=== PATIENT | female | born 1930 | race Caucasian/White ===

== ENCOUNTER 2016-10-23 19:38 | Inpatient (IN) | payer MEDICARE, OTHER ==
[~2016-10-23] VITALS: Ht 172.7 cm; Wt 52.6 kg
[~2016-10-23 19:38] MED LIST: ASPI325T82 PO
[2016-10-23] MEDS ORDERED: NORMAL SALINE IV SCH (20:03)
--- NOTE | 2016-10-23 20:31 | PHYS DOC ---
Past Medical History Past Medical History: Arthritis Additional Past Medical Histor: "difficulty swallowing" Past Surgical History: Other Additional Past Surgical Histo: bilat knees, esophageal dilatation, cataracts, back Alcohol Use: Occasionally Additional Information: occasional wine glass Drug Use: None Adult General Chief Complaint Chief Complaint: MECHANICAL FALL HPI HPI Patient is a 86 year old female who presents with generalized weakness. Patient was brought to the emergency department by EMS after patient suffered a fall earlier today. Patient normally ambulates with use of walker. Patient was attempting to go to the restroom when she actually fell. Patient did not experience loss of consciousness as a result of her fall and did not hit her head per family. The patient is complaining of left knee and left ankle pain. Patient has noted history of severe arthritis which has caused very limited mobility for the patient. The patient was unable to bear weight under her own power. Family notes that even with assistance they were unable to help the patient bear weight. Patient family do not report any fevers or other symptoms prior to onset of the fall. EMS noted that the patient had an elevated blood sugar of 374. Patient does not have any known history of diabetes. Review of Systems Review of Systems Constitutional: Generalized weakness, Denies fever or chills [] Eyes: Denies change in visual acuity, redness, or eye pain [] HENT: Denies nasal congestion or sore throat [] Respiratory: Shortness of breath [] Cardiovascular: Denies chest pain [] GI: Denies abdominal pain, nausea, vomiting, bloody stools or diarrhea [] : Denies dysuria or hematuria [] Musculoskeletal: Left knee and left ankle pain [] Integument: Denies rash or skin lesions [] Neurologic: Denies headache, focal weakness or sensory changes [] Current Medications Current Medications Current Medications Medications (Trade) Dose Ordered Sig/Freddie Start Time Stop Time Status Last Admin Dose Admin Fentanyl Citrate (Fentanyl 2ml Vial) 100 mcg STK-MED ONCE 10/23/16 20:46 10/23/16 20:47 DC Ondansetron HCl (Zofran) 4 mg STK-MED ONCE 10/23/16 20:46 10/23/16 20:47 DC Sodium Chloride 1,440 ml @ 720 mls/hr Q2H 10/23/16 20:03 10/23/16 20:35 720 MLS/HR Allergies Allergies Allergies Coded Allergies Type Severity Reaction Last Updated Verified No Known Drug Allergies 10/13/13 No Physical Exam Physical Exam Constitutional: Alert, afebrile, hypotensive, appears ill. [] HENT: Normocephalic, atraumatic, bilateral external ears normal, pale mucous membranes, dry oral mucosa, no oral exudates, nose normal. [] Eyes: PERRLA, EOMI, conjunctiva normal, no discharge. [] Neck: Normal range of motion, no tenderness, supple, no stridor. [] Cardiovascular: Tachycardia, regular rhythm, no murmur [] Lungs & Thorax: Bilateral breath sounds clear to auscultation [] Abdomen: Bowel sounds normal, soft, no tenderness, no masses, no pulsatile masses. Rectal: Nontender on exam, dark brown stool, no gross blood visible [] Skin: Warm, dry, pale. [] Back: No tenderness, no CVA tenderness. [] Extremities: Chronic deformities of the knee and ankle joints, nontender to palpation along left knee and left ankle, pain with range of motion present. [] Neurologic: Alert and oriented X 3, normal motor function, normal sensory function, no focal deficits noted. [] Current Patient Data Vital Signs Vital Signs Date Time Temp Pulse Resp B/P (MAP) Pulse Ox O2 Delivery O2 Flow Rate FiO2 10/23/16 20:51 120 16 88/45 (59) 100 Room Air 10/23/16 19:38 97.4 97.4 Lab Values Laboratory Tests Test 10/23/16 20:30 10/23/16 20:35 10/23/16 21:00 10/23/16 21:27 Lactic Acid Level 9.4 mmol/L (0.4-2.0) *H White Blood Count 9.4 x10^3/uL (4.0-11.0) Red Blood Count 1.79 x10^6/uL (3.50-5.40) L Hemoglobin 7.0 g/dL (12.0-15.5) *L Hematocrit 21.2 % (36.0-47.0) L Mean Corpuscular Volume 119 fL (79-100) H Mean Corpuscular Hemoglobin 39 pg (25-35) H Mean Corpuscular Hemoglobin Concent 33 g/dL (31-37) Red Cell Distribution Width 16.0 % (11.5-14.5) H Platelet Count 136 x10^3/uL (140-400) L Neutrophils (%) (Auto) 91 % (31-73) H Lymphocytes (%) (Auto) 6 % (24-48) L Monocytes (%) (Auto) 3 % (0-9) Eosinophils (%) (Auto) 0 % (0-3) Basophils (%) (Auto) 0 % (0-3) Neutrophils # (Auto) 8.6 x10^3uL (1.8-7.7) H Lymphocytes # (Auto) 0.5 x10^3/uL (1.0-4.8) L Monocytes # (Auto) 0.3 x10^3/uL (0.0-1.1) Eosinophils # (Auto) 0.0 x10^3/uL (0.0-0.7) Basophils # (Auto) 0.0 x10^3/uL (0.0-0.2) Segmented Neutrophils % 77 % (35-66) H Band Neutrophils % 12 % (0-9) H Lymphocytes % 6 % (24-48) L Monocytes % 5 % (0-10) Nucleated Red Blood Cells 1 Platelet Estimate Adequate (ADEQUATE) Basophilic Stippling Present Macrocytosis Mod Ovalocytes Occ Prothrombin Time 15.2 SEC (11.7-14.0) H Prothrombin Time INR 1.3 (0.8-1.1) H PTT 25 SEC (24-38) Sodium Level 143 mmol/L (136-145) Potassium Level 5.3 mmol/L (3.5-5.1) H Chloride Level 104 mmol/L (98-107) Carbon Dioxide Level 20 mmol/L (21-32) L Anion Gap 19 (6-14) H Blood Urea Nitrogen 124 mg/dL (7-20) H Creatinine 1.9 mg/dL (0.6-1.0) H Estimated GFR (Cockcroft-Gault) 25.0 BUN/Creatinine Ratio 65 (6-20) H Glucose Level 218 mg/dL (70-99) H Calcium Level 9.4 mg/dL (8.5-10.1) Total Bilirubin 0.4 mg/dL (0.2-1.0) Aspartate Amino Transferase (AST) 18 U/L (15-37) Alanine Aminotransferase (ALT) 17 U/L (14-59) Alkaline Phosphatase 45 U/L (46-116) L Creatine Kinase 55 U/L (26-192) Creatine Kinase MB (Mass) 0.7 ng/mL (0.0-3.6) Creatine Kinase MB Relative Index % (0-4) Total Protein 6.5 g/dL (6.4-8.2) Albumin 3.3 g/dL (3.4-5.0) L Albumin/Globulin Ratio 1.0 (1.0-1.7) Ethyl Alcohol Level < 10 mg/dL (0-10) Stool Occult Blood Negative (NEG) Urine Collection Type Unknown Urine Color Yellow Urine Clarity Clear Urine pH 5.5 Urine Specific [place] 1.015 Urine Protein Negative mg/dL (NEG-TRACE) Urine Glucose (UA) Negative mg/dL (NEG) Urine Ketones (Stick) Negative mg/dL (NEG) Urine Blood Negative (NEG) Urine Nitrite Negative (NEG) Urine Bilirubin Negative (NEG) Urine Urobilinogen Dipstick 0.2 mg/dL (0.2 mg/dL) Urine Leukocyte Esterase Negative (NEG) Urine RBC Occ /HPF (0-2) Urine WBC Occ /HPF (0-4) Urine Squamous Epithelial Cells Mod /LPF Urine Bacteria 0 /HPF (0-FEW) Urine Mucus Slight /LPF Urine Opiates Screen Neg (NEG) Urine Methadone Screen Neg (NEG) Urine Barbiturates Neg (NEG) Urine Phencyclidine Screen Neg (NEG) Urine Amphetamine/Methamphetamine Neg (NEG) Urine Benzodiazepines Screen Neg (NEG) Urine Cocaine Screen Neg (NEG) Urine Cannabinoids Screen Neg (NEG) Urine Ethyl Alcohol Neg (NEG) Laboratory Tests 10/23/16 20:35 Laboratory Tests 10/23/16 20:35 EKG EKG Interpreted by me: Heart rate 128, sinus tachycardia, normal intervals, normal axis, no acute ST/T-wave abnormalities present [] Radiology/Procedures Radiology/Procedures One view AP chest x-ray interpreted by me: No infiltrates, no effusions, normal cardiac silhouette 3 view left ankle x-ray interpreted by me: Severe degenerative changes, no fractures, normal alignment 3 view left knee x-ray interpreted by me: Possible periprosthetic fracture versus chronic degenerative changes of the distal left femur, normal alignment, moderate soft tissue swelling overlying left knee [] Course & Med Decision Making Course & Med Decision Making Pertinent Labs and Imaging studies reviewed. (See chart for details) The patient was started on 2 L of IV fluids in the emergency department due to tachycardia and hypotension. The patient's blood work was significant for multiple metabolic abnormalities including lactic acidosis, acute renal failure with hyperuricemia, and evidence of macrocytic anemia. The patient does not appear to have evidence of acute hemorrhage. Patient is responding with IV fluid challenge. Patient does meet SIRS criteria at this time with no obvious source of infection identified. I spoke with Dr. Myers who agreed to accept the patient for admission to ICU for further treatment. We also agreed to start patient on empiric antibiotic therapy with vancomycin and Zosyn until results of blood cultures were received. Spoke with family regarding plan of care and they are in agreement at this time. Dragon Disclaimer Dragon Disclaimer This electronic medical record was generated, in whole or in part, using a voice recognition dictation system. Departure Departure Impression: Primary Impression: Hemodynamic instability Additional Impressions: Acute renal failure SIRS (systemic inflammatory response syndrome) Macrocytic anemia Metabolic acidosis Bandemia Hyperglycemia Mild protein malnutrition Disposition: 09 ADMITTED INPATIENT Admitting Physician: Rodolfo Myers Condition: CRITICAL Referrals: NO PCP (PCP) Problem Qualifiers Additional Impressions: Acute renal failure Acute renal failure type: unspecified Qualified Codes: N17.9 - Acute kidney failure, unspecified PRASANNA BLANK MD October 23, 2016 20:31
[2016-10-23] MEDS ORDERED: ONDANSETRON PF 4 MG/2 ML VIAL. IV ONE (20:45)
[2016-10-23] MEDS ORDERED: ONDANSETRON PF 4 MG/2 ML VIAL. ONE (20:46)
[2016-10-23] MEDS ORDERED: fentaNYL PF VIAL 100 MCG/2 ML VIAL ONE (20:46)
[2016-10-23 20:47] LABS: BASO % 0 % (0-3); EOS % 0 % (0-3); HEMATOCRIT 21.2 % (36.0-47.0); LYMPH # 0.5 x10^3/uL (1.0-4.8); LYMPH % 6 % (24-48); MEAN CORPUSCULAR HEMOGLOBIN 39 pg (25-35); MEAN CORPUSCULAR HGB CONC 33 g/dL (31-37); MEAN CORPUSCULAR VOLUME 119 fL (79-100); MONO % 3 % (0-9); NEUT % 91 % (31-73); PLATELET COUNT 136 x10^3/uL (140-400); RED BLOOD COUNT 1.79 x10^6/uL (3.50-5.40); WHITE BLOOD COUNT 9.4 x10^3/uL (4.0-11.0)
[2016-10-23] MEDS: fentaNYL PF VIAL 100 MCG/2 ML VIAL IV PRN ×2 (20:50→22:07)
[2016-10-23 20:55] LABS: INR 1.3 (0.8-1.1); PROTHROMBIN TIME PATIENT 15.2 SEC (11.7-14.0)
[2016-10-23 20:57] LABS: CALCIUM 9.4 mg/dL (8.5-10.1); CREATININE 1.9 mg/dL (0.6-1.0); POTASSIUM 5.3 mmol/L (3.5-5.1)
[2016-10-23 21:04] LABS: ALBUMIN 3.3 g/dL (3.4-5.0); TOTAL BILIRUBIN 0.4 mg/dL (0.2-1.0); TOTAL PROTEIN 6.5 g/dL (6.4-8.2)
[2016-10-23 21:12] LABS: CKMB MASS 0.7 ng/mL (0.0-3.6); CREATINE KINASE 55 U/L (26-192)
[2016-10-23 21:28] LABS: NUCLEATED RBC 1; PLT ESTIMATE ADEQUATE (ADEQUATE)
[2016-10-23 21:31] LABS: OVALOCYTES OCC
[2016-10-23 21:35] LABS: BILIRUBIN,URINE NEGATIVE (NEG); GLUCOSE,URINE NEGATIVE (NEG); NITRITE,URINE NEGATIVE (NEG); PH,URINE 5.5; PROTEIN,URINE NEGATIVE (NEG-TRACE); UROBILINOGEN,URINE 0.2 mg/dL (0.2 mg/dL)
[2016-10-23 21:36] LABS: NEG OBC FOB NEG; POS OBC FOB POS
[2016-10-23 21:40] LABS: BACTERIA,URINE 0 /HPF (0-FEW); RBC,URINE OCC /HPF (0-2); SQUAMOUS EPITHELIAL CELL,UR MOD /LPF; WBC,URINE OCC /HPF (0-4)
[2016-10-23] MEDS ORDERED: IV NORMAL SALINE 1000ML BAG 1,000 ML IV ONE (22:15)
[2016-10-23 22:20] LABS: BARBITURATES NEG (NEG); BENZODIAZEPINES NEG (NEG); CANNABINOIDS NEG (NEG); COCAINE NEG (NEG); METHADONE NEG (NEG); OPIATES NEG (NEG); PHENCYCLIDINE NEG (NEG)
[2016-10-23] MEDS ORDERED: PIP/TAZO PER PHARMACY MC PRN (23:00)
[2016-10-23 23:30] VITALS: BP 48/23
[2016-10-23] MEDS ORDERED: VANCOMYCIN 1.25 GM in IV NORMAL SALINE 250ML 250 ML IV ONE (23:30)
[2016-10-23] MEDS: PIPERACILLIN/TAZOBACTAM 2.25 GM in IV NORMAL SALINE 50ML 50 ML IV SCH (23:39)
[2016-10-23 23:40] VITALS: BP 65/39
[2016-10-23 23:45] VITALS: BP 65/39
[2016-10-23] MEDS ORDERED: ACETAMINOPHEN 325 MG TABLET. PO PRN (23:45)
[2016-10-23] MEDS ORDERED: ONDANSETRON PF 4 MG/2 ML VIAL. IV PRN (23:45)
[2016-10-23 23:55] VITALS: BP 65/38
[2016-10-24] VITALS (38 sets, daily range): BP systolic 60–109; BP diastolic 32–67
[2016-10-24] MEDS: NOREPINEPHRIN PREMIX 250 ML IV PRN ×4 (00:12→21:31)
[2016-10-24] MEDS: fentaNYL PF VIAL 100 MCG/2 ML VIAL IV PRN ×4 (00:46→12:33)
[2016-10-24] MEDS: VANCOMYCIN PER PHARMACY MC PRN ×2 (00:53→10:45)
[2016-10-24] MEDS ORDERED: HYDROcodone/APAP 5/325MG 1 TAB TABLET PO PRN (02:15)
[2016-10-24 03:53] LABS: NEG OBC GOB NEG
[2016-10-24 03:54] LABS: POS OBC GOB POS
[2016-10-24] MEDS: IV NORMAL SALINE 1000ML BAG 1,000 ML IV SCH ×2 (04:37→11:10)
[2016-10-24] MEDS: PANTOPRAZOLE SODIUM IV 80 MG in IV NORMAL SALINE 100ML 100 ML IV SCH ×2 (05:47→15:30)
[2016-10-24] MEDS: PIPERACILLIN/TAZOBACTAM 2.25 GM in IV NORMAL SALINE 50ML 50 ML IV SCH ×4 (05:47→18:22)
[2016-10-24 06:42] LABS: BASO % 0 % (0-3); EOS % 0 % (0-3); HEMATOCRIT 28.1 % (36.0-47.0); HEMOGLOBIN 9.2 g/dL (12.0-15.5); LYMPH # 0.5 x10^3/uL (1.0-4.8); LYMPH % 4 % (24-48); MEAN CORPUSCULAR HEMOGLOBIN 32 pg (25-35); MEAN CORPUSCULAR HGB CONC 33 g/dL (31-37); MEAN CORPUSCULAR VOLUME 99 fL (79-100); MONO % 4 % (0-9); NEUT % 92 % (31-73); PLATELET COUNT 82 x10^3/uL (140-400); RED BLOOD COUNT 2.83 x10^6/uL (3.50-5.40); RED CELL DISTRIBUTION WIDTH 21.6 % (11.5-14.5); WHITE BLOOD COUNT 15.5 x10^3/uL (4.0-11.0)
[2016-10-24 06:48] LABS: CREATININE 1.8 mg/dL (0.6-1.0); GFR 26.6
[2016-10-24 06:49] LABS: CALCIUM 7.9 mg/dL (8.5-10.1)
--- NOTE | 2016-10-24 07:26 | EKG ---
[facility] [address] [place] [address] Test Date: 2016-10-23 Test Time: 19:45:37 Pat Name: JOSH MCCARTY Department: Room: 108 1 Gender: F Oil Agent: : [id number] Requested By: PRASANNA BLANK Order Number: [id number] Reading MD: Sadie Santos Measurements Intervals [place] Rate: 128 P: 90 IL: 176 QRS: 70 QRSD: 70 T: 74 QT: 282 QTc: 415 Interpretive Statements SINUS TACHYCARDIA OTHERWIASE NORMAL EKG RI6.01 Unconfirmed report Compared to ECG 12/06/2011 12:41:50 No significant changes Electronically Signed On 10-27-2016 14:58:23 CDT by Sadie Santos
--- NOTE | 2016-10-24 09:03 | RAD ---
Left ankle, 3 views, 10/23/2016: History: Fall, pain There is moderate patchy bony demineralization. No ankle fracture is identified. There are mild degenerative changes at the ankle joint and at the midfoot level. Extensive vascular calcifications are present. IMPRESSION: 1. Demineralization. 2. No acute bony abnormality is detected. Left knee, 3 views, 10/23/2016: History: Fall, pain There is moderate patchy bony demineralization. A total knee prosthesis is in place in satisfactory position. The patient is somewhat rotated on the attempted lateral view. There is cortical discontinuity and irregularity along the margins of the distal femur at the level of the superior edge of the femoral component of the prosthesis. The appearance raises the possibility of an impacted fracture, of indeterminate age. No other fracture or dislocation is identified. Scattered arterial calcifications are present. IMPRESSION: 1. Demineralization. 2. A total knee prosthesis is in place. 3. Possible impacted distal femoral fracture along the superior margin of the femoral component of the prosthesis.
--- NOTE | 2016-10-24 09:05 | RAD ---
Portable chest, 10/23/2016: History: Tachycardia, weakness The heart size is normal. There is calcific plaquing of the aorta. There are mild scattered parenchymal scars. No acute infiltrate is seen. There is no evidence of pleural fluid or pneumothorax. The bony structures are demineralized. There are mild degenerative changes at both shoulders. IMPRESSION: No acute cardiopulmonary abnormality is detected.
--- NOTE | 2016-10-24 09:11 | PDOC2 ---
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 Found to be anemic and hypotensive, admitted to ICU. Still hypotensive on pressor. After arrival to unit, had 3-4 episodes of emesis w/ bilious and brown /coffee-ground material; gastric occult blood positive. Other labs: Hgb 7 (now 9.2 after transfusion 2 units pRBCs), plt 82, INR 1.3, lactic acid 6.4 (now 3.5) , K+ 5.3 (now 6), BUN 124 (now 121), Cr 1.9 (now 1.8), hemoccult neg stool. Denies GI symptoms prior to admission including n/v, hematemesis, hematochezia, melena, and abd pain. H/o dysphagia w/ previous [place] [address] Cochran which showed esophageal stricture (dilated), Grade IV reflux esophagitis, gastritis, and duodenal stricture (dilated w/ balloon). Advised to take PPI BID w/ improvement of symptoms. Has not continued PPI. Does take Excedrin at least 4x daily for leg/arthritis pain. Asks for water and repeatedly for pain medication. RN inquires re: ID consult. PMH: PMH: arthritis, cataracts, HTN, back surgery, bilateral knee replacement FH: Family History: No pertinent hx Social History: Smoke: No ALCOHOL: none Drugs: None ROS: GEN: Denies fevers, chills, sweats HEENT: Denies blurred vision, sore throat CV: Denies chest pain RESP: Denies shortness of air, cough GI: Per HPI : Denies hematuria, dysuria ENDO: Denies weight changes NEURO: Denies confusion, dizziness MSK: +weakness SKIN: Denies jaundice, pruritus Vitals: Vitals: Vital Signs Date Time Temp Pulse Resp B/P (MAP) Pulse Ox O2 Delivery O2 Flow Rate FiO2 10/24/16 08:00 Nasal Cannula 2.0 10/24/16 07:48 97.4 117 16 90/46 (61) 99 97.4 Labs: Labs: Laboratory Tests Test 10/23/16 20:30 10/23/16 20:35 10/23/16 21:00 10/23/16 21:27 Lactic Acid Level 9.4 mmol/L (0.4-2.0) White Blood Count 9.4 x10^3/uL (4.0-11.0) Red Blood Count 1.79 x10^6/uL (3.50-5.40) Hemoglobin 7.0 g/dL (12.0-15.5) Hematocrit 21.2 % (36.0-47.0) Mean Corpuscular Volume 119 fL (79-100) Mean Corpuscular Hemoglobin 39 pg (25-35) Mean Corpuscular Hemoglobin Concent 33 g/dL (31-37) Red Cell Distribution Width 16.0 % (11.5-14.5) Platelet Count 136 x10^3/uL (140-400) Neutrophils (%) (Auto) 91 % (31-73) Lymphocytes (%) (Auto) 6 % (24-48) Monocytes (%) (Auto) 3 % (0-9) Eosinophils (%) (Auto) 0 % (0-3) Basophils (%) (Auto) 0 % (0-3) Neutrophils # (Auto) 8.6 x10^3uL (1.8-7.7) Lymphocytes # (Auto) 0.5 x10^3/uL (1.0-4.8) Monocytes # (Auto) 0.3 x10^3/uL (0.0-1.1) Eosinophils # (Auto) 0.0 x10^3/uL (0.0-0.7) Basophils # (Auto) 0.0 x10^3/uL (0.0-0.2) Segmented Neutrophils % 77 % (35-66) Band Neutrophils % 12 % (0-9) Lymphocytes % 6 % (24-48) Monocytes % 5 % (0-10) Nucleated Red Blood Cells 1 Platelet Estimate Adequate (ADEQUATE) Basophilic Stippling Present Macrocytosis Mod Ovalocytes Occ Prothrombin Time 15.2 SEC (11.7-14.0) Prothromb Time International Ratio 1.3 (0.8-1.1) Activated Partial Thromboplast Time 25 SEC (24-38) Sodium Level 143 mmol/L (136-145) Potassium Level 5.3 mmol/L (3.5-5.1) Chloride Level 104 mmol/L (98-107) Carbon Dioxide Level 20 mmol/L (21-32) Anion Gap 19 (6-14) Blood Urea Nitrogen 124 mg/dL (7-20) Creatinine 1.9 mg/dL (0.6-1.0) Estimated GFR (Cockcroft-Gault) 25.0 BUN/Creatinine Ratio 65 (6-20) Glucose Level 218 mg/dL (70-99) Calcium Level 9.4 mg/dL (8.5-10.1) Total Bilirubin 0.4 mg/dL (0.2-1.0) Aspartate Amino Transf (AST/SGOT) 18 U/L (15-37) Alanine Aminotransferase (ALT/SGPT) 17 U/L (14-59) Alkaline Phosphatase 45 U/L (46-116) Creatine Kinase 55 U/L (26-192) Creatine Kinase MB (Mass) 0.7 ng/mL (0.0-3.6) Creatine Kinase MB Relative Index % (0-4) Total Protein 6.5 g/dL (6.4-8.2) Albumin 3.3 g/dL (3.4-5.0) Albumin/Globulin Ratio 1.0 (1.0-1.7) Ethyl Alcohol Level < 10 mg/dL (0-10) Stool Occult Blood Negative (NEG) Urine Collection Type Unknown Urine Color Yellow Urine Clarity Clear Urine pH 5.5 Urine Specific [place] 1.015 Urine Protein Negative mg/dL (NEG-TRACE) Urine Glucose (UA) Negative mg/dL (NEG) Urine Ketones (Stick) Negative mg/dL (NEG) Urine Blood Negative (NEG) Urine Nitrite Negative (NEG) Urine Bilirubin Negative (NEG) Urine Urobilinogen Dipstick 0.2 mg/dL (0.2 mg/dL) Urine Leukocyte Esterase Negative (NEG) Urine RBC Occ /HPF (0-2) Urine WBC Occ /HPF (0-4) Urine Squamous Epithelial Cells Mod /LPF Urine Bacteria 0 /HPF (0-FEW) Urine Mucus Slight /LPF Urine Opiates Screen Neg (NEG) Urine Methadone Screen Neg (NEG) Urine Barbiturates Neg (NEG) Urine Phencyclidine Screen Neg (NEG) Urine Amphetamine/Methamphetamine Neg (NEG) Urine Benzodiazepines Screen Neg (NEG) Urine Cocaine Screen Neg (NEG) Urine Cannabinoids Screen Neg (NEG) Urine Ethyl Alcohol Neg (NEG) Test 10/23/16 22:25 10/24/16 03:20 10/24/16 06:10 Lactic Acid Level 6.4 mmol/L (0.4-2.0) 3.5 mmol/L (0.4-2.0) Gastric Fluid Occult Blood Positive (NEG) White Blood Count 15.5 x10^3/uL (4.0-11.0) Red Blood Count 2.83 x10^6/uL (3.50-5.40) Hemoglobin 9.2 g/dL (12.0-15.5) Hematocrit 28.1 % (36.0-47.0) Mean Corpuscular Volume 99 fL (79-100) Mean Corpuscular Hemoglobin 32 pg (25-35) Mean Corpuscular Hemoglobin Concent 33 g/dL (31-37) Red Cell Distribution Width 21.6 % (11.5-14.5) Platelet Count 82 x10^3/uL (140-400) Neutrophils (%) (Auto) 92 % (31-73) Lymphocytes (%) (Auto) 4 % (24-48) Monocytes (%) (Auto) 4 % (0-9) Eosinophils (%) (Auto) 0 % (0-3) Basophils (%) (Auto) 0 % (0-3) Neutrophils # (Auto) 14.3 x10^3uL (1.8-7.7) Lymphocytes # (Auto) 0.5 x10^3/uL (1.0-4.8) Monocytes # (Auto) 0.6 x10^3/uL (0.0-1.1) Eosinophils # (Auto) 0.0 x10^3/uL (0.0-0.7) Basophils # (Auto) 0.0 x10^3/uL (0.0-0.2) Sodium Level 145 mmol/L (136-145) Potassium Level 6.0 mmol/L (3.5-5.1) Chloride Level 111 mmol/L (98-107) Carbon Dioxide Level 20 mmol/L (21-32) Anion Gap 14 (6-14) Blood Urea Nitrogen 121 mg/dL (7-20) Creatinine 1.8 mg/dL (0.6-1.0) Estimated GFR (Cockcroft-Gault) 26.6 Glucose Level 143 mg/dL (70-99) Calcium Level 7.9 mg/dL (8.5-10.1) Allergies: Coded Allergies: No Known Drug Allergies (Unverified , 10/13/13) Medications: Current Medications Medications (Trade) Dose Ordered Sig/Freddie Route PRN Reason Start Time Stop Time Status Last Admin Dose Admin Sodium Chloride 1,440 ml @ 720 mls/hr Q2H IV 10/23/16 20:03 10/24/16 01:41 DC 10/23/16 20:35 Fentanyl Citrate (Fentanyl 2ml Vial) 50 mcg PRN Q15MIN PRN IV PAIN GREATER THAN 3/10 10/23/16 20:45 10/24/16 20:44 10/23/16 22:07 Ondansetron HCl (Zofran) 4 mg 1X ONCE IV 10/23/16 20:45 10/23/16 20:46 DC 10/23/16 20:47 Sodium Chloride 1,000 ml @ 150 mls/hr 1X ONCE IV 10/23/16 22:15 10/24/16 04:54 DC 10/23/16 22:10 Vancomycin HCl (Vanco Per Pharmacy) 1 each PRN DAILY PRN MC SEE COMMENTS 10/23/16 23:00 10/24/16 00:53 Vancomycin HCl 1.25 gm/Sodium Chloride 250 ml @ 166.667 mls/hr 1X ONCE IV 10/23/16 23:30 10/24/16 00:59 DC 10/24/16 00:15 Piperacillin Sod/ Tazobactam Sod 2.25 gm/Sodium Chloride 50 ml @ 100 mls/hr Q6HRS IV 10/24/16 00:00 10/24/16 05:47 Ondansetron HCl (Zofran) 4 mg PRN Q8HRS PRN IV NAUSEA/VOMITING 10/23/16 23:45 10/24/16 23:44 10/24/16 01:28 Fentanyl Citrate (Fentanyl 2ml Vial) 50 mcg PRN Q2HR PRN IV SEVERE PAIN 10/23/16 23:45 10/24/16 23:44 10/24/16 06:24 Norepinephrine Bitartrate 250 ml @ 0 mls/hr CONT PRN IV SEE I/O RECORD 10/24/16 00:00 10/24/16 00:12 Sodium Chloride 1,000 ml @ 150 mls/hr Q6H40M IV 10/24/16 04:30 10/24/16 04:37 Acetaminophen/ Hydrocodone Bitart (Lortab 5/325) 1 tab PRN Q4HRS PRN PO MODERATE PAIN 10/24/16 02:15 10/24/16 02:19 Pantoprazole Sodium 80 mg/ Sodium Chloride 100 ml @ 10 mls/hr Q10H IV 10/24/16 06:00 10/24/16 05:47 Imaging: Imaging: Ankle, Knee, Chest X-Rays PENDING PE: GEN: looks a bit uncomfortable HEENT: Atraumatic, PERRL LUNGS: CTAB HEART: tachycardic ABD: NABS, S/ND/NT EXTREMITY: No edema SKIN: No rashes, no jaundice NEURO/PSYCH: A & O 3 A/P: A/P: Weakness, fall Hypotension, acute renal failure, hyperkalemia, lactic acidosis Anemia -Hgb 7 on admit, now 9.2 s.p transfusion Coffee-ground emesis -in ICU, gastric occult blood + H/o severe reflux esophagitis, h/o dysphagia, h/o duodenal stricture -had EGD in 2013 w/ dilations -took PPI for awhile, no longer does Arthritis, leg pain, Excedrin use CRC screen -no previous colonoscopy -- D/w Dr. Cochran. No plans for EGD yet. Renal and ID consults placed. ?NSAID ulcer - continue PPI drip. KJ ACUÑA October 24, 2016 09:10
--- NOTE | 2016-10-24 09:41 | PDOC ---
Infectious Disease Note Vital Sign Vital Signs Vital Signs Date Time Temp Pulse Resp B/P (MAP) Pulse Ox O2 Delivery O2 Flow Rate FiO2 10/24/16 09:00 116 20 100/44 (62) 98 Room Air 10/24/16 08:00 2.0 10/24/16 07:48 97.4 97.4 Labs Lab Laboratory Tests Test 10/23/16 20:30 10/23/16 20:35 10/23/16 21:00 10/23/16 21:27 Lactic Acid Level 9.4 mmol/L (0.4-2.0) White Blood Count 9.4 x10^3/uL (4.0-11.0) Red Blood Count 1.79 x10^6/uL (3.50-5.40) Hemoglobin 7.0 g/dL (12.0-15.5) Hematocrit 21.2 % (36.0-47.0) Mean Corpuscular Volume 119 fL (79-100) Mean Corpuscular Hemoglobin 39 pg (25-35) Mean Corpuscular Hemoglobin Concent 33 g/dL (31-37) Red Cell Distribution Width 16.0 % (11.5-14.5) Platelet Count 136 x10^3/uL (140-400) Neutrophils (%) (Auto) 91 % (31-73) Lymphocytes (%) (Auto) 6 % (24-48) Monocytes (%) (Auto) 3 % (0-9) Eosinophils (%) (Auto) 0 % (0-3) Basophils (%) (Auto) 0 % (0-3) Neutrophils # (Auto) 8.6 x10^3uL (1.8-7.7) Lymphocytes # (Auto) 0.5 x10^3/uL (1.0-4.8) Monocytes # (Auto) 0.3 x10^3/uL (0.0-1.1) Eosinophils # (Auto) 0.0 x10^3/uL (0.0-0.7) Basophils # (Auto) 0.0 x10^3/uL (0.0-0.2) Segmented Neutrophils % 77 % (35-66) Band Neutrophils % 12 % (0-9) Lymphocytes % 6 % (24-48) Monocytes % 5 % (0-10) Nucleated Red Blood Cells 1 Platelet Estimate Adequate (ADEQUATE) Basophilic Stippling Present Macrocytosis Mod Ovalocytes Occ Prothrombin Time 15.2 SEC (11.7-14.0) Prothromb Time International Ratio 1.3 (0.8-1.1) Activated Partial Thromboplast Time 25 SEC (24-38) Sodium Level 143 mmol/L (136-145) Potassium Level 5.3 mmol/L (3.5-5.1) Chloride Level 104 mmol/L (98-107) Carbon Dioxide Level 20 mmol/L (21-32) Anion Gap 19 (6-14) Blood Urea Nitrogen 124 mg/dL (7-20) Creatinine 1.9 mg/dL (0.6-1.0) Estimated GFR (Cockcroft-Gault) 25.0 BUN/Creatinine Ratio 65 (6-20) Glucose Level 218 mg/dL (70-99) Calcium Level 9.4 mg/dL (8.5-10.1) Total Bilirubin 0.4 mg/dL (0.2-1.0) Aspartate Amino Transf (AST/SGOT) 18 U/L (15-37) Alanine Aminotransferase (ALT/SGPT) 17 U/L (14-59) Alkaline Phosphatase 45 U/L (46-116) Creatine Kinase 55 U/L (26-192) Creatine Kinase MB (Mass) 0.7 ng/mL (0.0-3.6) Creatine Kinase MB Relative Index % (0-4) Total Protein 6.5 g/dL (6.4-8.2) Albumin 3.3 g/dL (3.4-5.0) Albumin/Globulin Ratio 1.0 (1.0-1.7) Ethyl Alcohol Level < 10 mg/dL (0-10) Stool Occult Blood Negative (NEG) Urine Collection Type Unknown Urine Color Yellow Urine Clarity Clear Urine pH 5.5 Urine Specific [place] 1.015 Urine Protein Negative mg/dL (NEG-TRACE) Urine Glucose (UA) Negative mg/dL (NEG) Urine Ketones (Stick) Negative mg/dL (NEG) Urine Blood Negative (NEG) Urine Nitrite Negative (NEG) Urine Bilirubin Negative (NEG) Urine Urobilinogen Dipstick 0.2 mg/dL (0.2 mg/dL) Urine Leukocyte Esterase Negative (NEG) Urine RBC Occ /HPF (0-2) Urine WBC Occ /HPF (0-4) Urine Squamous Epithelial Cells Mod /LPF Urine Bacteria 0 /HPF (0-FEW) Urine Mucus Slight /LPF Urine Opiates Screen Neg (NEG) Urine Methadone Screen Neg (NEG) Urine Barbiturates Neg (NEG) Urine Phencyclidine Screen Neg (NEG) Urine Amphetamine/Methamphetamine Neg (NEG) Urine Benzodiazepines Screen Neg (NEG) Urine Cocaine Screen Neg (NEG) Urine Cannabinoids Screen Neg (NEG) Urine Ethyl Alcohol Neg (NEG) Test 10/23/16 22:25 10/24/16 03:20 10/24/16 06:10 Lactic Acid Level 6.4 mmol/L (0.4-2.0) 3.5 mmol/L (0.4-2.0) Gastric Fluid Occult Blood Positive (NEG) White Blood Count 15.5 x10^3/uL (4.0-11.0) Red Blood Count 2.83 x10^6/uL (3.50-5.40) Hemoglobin 9.2 g/dL (12.0-15.5) Hematocrit 28.1 % (36.0-47.0) Mean Corpuscular Volume 99 fL (79-100) Mean Corpuscular Hemoglobin 32 pg (25-35) Mean Corpuscular Hemoglobin Concent 33 g/dL (31-37) Red Cell Distribution Width 21.6 % (11.5-14.5) Platelet Count 82 x10^3/uL (140-400) Neutrophils (%) (Auto) 92 % (31-73) Lymphocytes (%) (Auto) 4 % (24-48) Monocytes (%) (Auto) 4 % (0-9) Eosinophils (%) (Auto) 0 % (0-3) Basophils (%) (Auto) 0 % (0-3) Neutrophils # (Auto) 14.3 x10^3uL (1.8-7.7) Lymphocytes # (Auto) 0.5 x10^3/uL (1.0-4.8) Monocytes # (Auto) 0.6 x10^3/uL (0.0-1.1) Eosinophils # (Auto) 0.0 x10^3/uL (0.0-0.7) Basophils # (Auto) 0.0 x10^3/uL (0.0-0.2) Reticulocyte Count (auto) 1.0 % (0.5-2.5) Sodium Level 145 mmol/L (136-145) Potassium Level 6.0 mmol/L (3.5-5.1) Chloride Level 111 mmol/L (98-107) Carbon Dioxide Level 20 mmol/L (21-32) Anion Gap 14 (6-14) Blood Urea Nitrogen 121 mg/dL (7-20) Creatinine 1.8 mg/dL (0.6-1.0) Estimated GFR (Cockcroft-Gault) 26.6 Glucose Level 143 mg/dL (70-99) Calcium Level 7.9 mg/dL (8.5-10.1) Objective Assessment S/P Fall Lactic acidosis ? ischemic bowel vs infection Hypotension, dehydration vs sepsis Leukocytosis Severe arthritis GI bleed/anemia Plan Plan of Care cont vanc and zosyn supportive care fluids d/w family in detail DNR/DNI CT abd and pelvis without contrast AILIN MELENDEZ MD October 24, 2016 09:41
[2016-10-24 09:46] LABS: % SAT IRON 74 % (15-34)
[2016-10-24 09:48] LABS: IRON,SERUM 216 ug/dL (50-170)
[2016-10-24 10:31] LABS: VITAMIN-B12 414 pg/mL (247-911)
[2016-10-24 10:46] LABS: FOLATE > 20.00 ng/ml (3.2-20.0)
--- NOTE | 2016-10-24 11:41 | PDOC2 ---
CONSULT Date of Consult Date of Consult DATE: 10/24/16 TIME: 11:35 Reason for Consult Reason for Consult: YIN Referring Physician Referring Physician: CARMEN Identification/Chief Complaint Chief Complaint N/V Source Source: Chart review, Patient History of Present Illness Reason for Visit: THIS IS AN 86 YR OLD ADMITTED WITH N/V AND COFFEE GROUND EMESIS. SHE DOES NOT HAVE ANY CKD. SHE HAS BEEN HYPOTENSIVE AND NOTED TO BE IN YIN WITH A CR OF 1.9 AND HYPERKALEMIA AND MET ACIDOSIS. SHE WAS ANEMIC AND HAS RECEIVED PRBC. SHE IS UNDERGOING GI EVAL Past Medical History Cardiovascular: HTN GI: Constipation, GERD, Gastritis, Peptic Ulcer disease Musculoskeletal: Osteoarthritis Past Surgical History Past Surgical History ESOPHAGEAL STRICTURE AND DILATION Family History Family History: No Significant Social History No ALCOHOL: none Drugs: None Current Problem List Problem List Problems Medical Problems: (1) Acute renal failure Status: Acute (2) Bandemia Status: Acute (3) Hemodynamic instability Status: Acute (4) Hyperglycemia Status: Acute (5) Macrocytic anemia Status: Acute (6) Metabolic acidosis Status: Acute (7) Mild protein malnutrition Status: Acute (8) SIRS (systemic inflammatory response syndrome) Status: Acute Current Medications Current Medications Current Medications Sodium Chloride 1,440 ml @ 720 mls/hr Q2H IV Last administered on 10/23/16 20 :35; Start 10/23/16 at 20:03; Stop 10/24/16 at 01:41; Status DC Fentanyl Citrate (Fentanyl 2ml Vial) 50 mcg PRN Q15MIN PRN IV PAIN GREATER THAN 3/10 Last administered on 10/23/16 22:07; Start 10/23/16 at 20:45; Stop at 20:44 Ondansetron HCl (Zofran) 4 mg 1X ONCE IV Last administered on 10/23/16 20:47 ; Start 10/23/16 at 20:45; Stop 10/23/16 at 20:46; Status DC Ondansetron HCl (Zofran) 4 mg STK-MED ONCE .ROUTE ; Start 10/23/16 at 20:46; Stop 10/23/16 at 20:47; Status DC Fentanyl Citrate (Fentanyl 2ml Vial) 100 mcg STK-MED ONCE .ROUTE ; Start at 20:46; Stop 10/23/16 at 20:47; Status DC Sodium Chloride 1,000 ml @ 150 mls/hr 1X ONCE IV Last administered on 22:10; Start 10/23/16 at 22:15; Stop 10/24/16 at 04:54; Status DC Vancomycin HCl (Vanco Per Pharmacy) 1 each PRN DAILY PRN MC SEE COMMENTS Last administered on 10/24/16 10:45; Start 10/23/16 at 23:00 Piperacillin Sod/ Tazobactam Sod (Zosyn Per Pharmacy) 1 each PRN DAILY PRN MC SEE COMMENTS; Start 10/23/16 at 23:00 Vancomycin HCl 1.25 gm/Sodium Chloride 250 ml @ 166.667 mls/hr 1X ONCE IV Last administered on 10/24/16 00:15; Start 10/23/16 at 23:30; Stop 10/24/16 at 00:59; Status DC Piperacillin Sod/ Tazobactam Sod 2.25 gm/Sodium Chloride 50 ml @ 100 mls/hr Q6HRS IV Last administered on 10/24/16 05:47; Start 10/24/16 at 00:00 Ondansetron HCl (Zofran) 4 mg PRN Q8HRS PRN IV NAUSEA/VOMITING Last administered on 10/24/16 01:28; Start 10/23/16 at 23:45; Stop 10/24/16 at 23:44 Fentanyl Citrate (Fentanyl 2ml Vial) 50 mcg PRN Q2HR PRN IV SEVERE PAIN Last administered on 10/24/16 06:24; Start 10/23/16 at 23:45; Stop 10/24/16 at 23:44 Acetaminophen (Tylenol) 650 mg PRN Q4HRS PRN PO FEVER; Start 10/23/16 at 23:45 ; Stop 10/24/16 at 23:44 Norepinephrine Bitartrate 250 ml @ 0 mls/hr CONT PRN IV SEE I/O RECORD Last administered on 10/24/16 00:12; Start 10/24/16 at 00:00 Vancomycin HCl 750 mg/Sodium Chloride 250 ml @ 250 mls/hr Q48H IV ; Start 10/25 at 23:00 Vancomycin HCl 1 each 1X ONCE MC ; Start 10/27/16 at 22:30; Stop 10/27/16 at 22 :31 Sodium Chloride 1,000 ml @ 150 mls/hr Q6H40M IV Last administered on 04:37; Start 10/24/16 at 04:30 Acetaminophen/ Hydrocodone Bitart (Lortab 5325) 1 tab PRN Q4HRS PRN PO MODERATE PAIN Last administered on 10/24/16 02:19; Start 10/24/16 at 02:15 Pantoprazole Sodium 80 mg/ Sodium Chloride 100 ml @ 10 mls/hr Q10H IV Last administered on 10/24/16 05:47; Start 10/24/16 at 06:00 Active Scripts Active Reported Aspirin Non Irrit 325 Mg Tab (Aspirin/Calcium Carbonate/Mag) 325 Mg Tablet 325 Mg PO DAILY Allergies Allergies: Coded Allergies: No Known Drug Allergies (Unverified , 10/13/13) ROS General: YES: Fatigue, Malaise, Appetite Eyes: Yes Decreased vision HEENT: YES: Heacaches Gastrointestinal: Yes Nausea, Yes Vomiting, Yes Abdominal Pain Genitourinary: YES Other (NOCTURIA) Musculoskeletal: Yes Muscular Weakness Neurological: Yes Weakness Skin: Yes Dry Skin Physical Exam General: Alert, Oriented X3, Cooperative, No acute distress HEENT: Atraumatic, PERRLA Lungs: Clear to auscultation Heart: Regular rate, Normal S1, Normal S2 Abdomen: Normal bowel sounds, No tenderness Extremities: No clubbing, No edema Neuro: Normal speech, Cranial nerves 3-12 NL Psych/Mental Status: Mood NL, Other (FLAT AFFECT) MUSCULOSKELETAL: Other (DIFFUSE OA CHANGES OF LE AND UE) Vitals VITALS Vital Signs Date Time Temp Pulse Resp B/P (MAP) Pulse Ox O2 Delivery O2 Flow Rate FiO2 10/24/16 11:00 111 19 90/38 (55) 97 Room Air 10/24/16 08:00 2.0 10/24/16 07:48 97.4 97.4 Labs Labs Laboratory Tests Test 10/23/16 20:30 10/23/16 20:35 10/23/16 21:00 10/23/16 21:27 Lactic Acid Level 9.4 mmol/L (0.4-2.0) White Blood Count 9.4 x10^3/uL (4.0-11.0) Red Blood Count 1.79 x10^6/uL (3.50-5.40) Hemoglobin 7.0 g/dL (12.0-15.5) Hematocrit 21.2 % (36.0-47.0) Mean Corpuscular Volume 119 fL (79-100) Mean Corpuscular Hemoglobin 39 pg (25-35) Mean Corpuscular Hemoglobin Concent 33 g/dL (31-37) Red Cell Distribution Width 16.0 % (11.5-14.5) Platelet Count 136 x10^3/uL (140-400) Neutrophils (%) (Auto) 91 % (31-73) Lymphocytes (%) (Auto) 6 % (24-48) Monocytes (%) (Auto) 3 % (0-9) Eosinophils (%) (Auto) 0 % (0-3) Basophils (%) (Auto) 0 % (0-3) Neutrophils # (Auto) 8.6 x10^3uL (1.8-7.7) Lymphocytes # (Auto) 0.5 x10^3/uL (1.0-4.8) Monocytes # (Auto) 0.3 x10^3/uL (0.0-1.1) Eosinophils # (Auto) 0.0 x10^3/uL (0.0-0.7) Basophils # (Auto) 0.0 x10^3/uL (0.0-0.2) Segmented Neutrophils % 77 % (35-66) Band Neutrophils % 12 % (0-9) Lymphocytes % 6 % (24-48) Monocytes % 5 % (0-10) Nucleated Red Blood Cells 1 Platelet Estimate Adequate (ADEQUATE) Basophilic Stippling Present Macrocytosis Mod Ovalocytes Occ Prothrombin Time 15.2 SEC (11.7-14.0) Prothromb Time International Ratio 1.3 (0.8-1.1) Activated Partial Thromboplast Time 25 SEC (24-38) Sodium Level 143 mmol/L (136-145) Potassium Level 5.3 mmol/L (3.5-5.1) Chloride Level 104 mmol/L (98-107) Carbon Dioxide Level 20 mmol/L (21-32) Anion Gap 19 (6-14) Blood Urea Nitrogen 124 mg/dL (7-20) Creatinine 1.9 mg/dL (0.6-1.0) Estimated GFR (Cockcroft-Gault) 25.0 BUN/Creatinine Ratio 65 (6-20) Glucose Level 218 mg/dL (70-99) Calcium Level 9.4 mg/dL (8.5-10.1) Total Bilirubin 0.4 mg/dL (0.2-1.0) Aspartate Amino Transf (AST/SGOT) 18 U/L (15-37) Alanine Aminotransferase (ALT/SGPT) 17 U/L (14-59) Alkaline Phosphatase 45 U/L (46-116) Creatine Kinase 55 U/L (26-192) Creatine Kinase MB (Mass) 0.7 ng/mL (0.0-3.6) Creatine Kinase MB Relative Index % (0-4) Total Protein 6.5 g/dL (6.4-8.2) Albumin 3.3 g/dL (3.4-5.0) Albumin/Globulin Ratio 1.0 (1.0-1.7) Ethyl Alcohol Level < 10 mg/dL (0-10) Stool Occult Blood Negative (NEG) Urine Collection Type Unknown Urine Color Yellow Urine Clarity Clear Urine pH 5.5 Urine Specific [place] 1.015 Urine Protein Negative mg/dL (NEG-TRACE) Urine Glucose (UA) Negative mg/dL (NEG) Urine Ketones (Stick) Negative mg/dL (NEG) Urine Blood Negative (NEG) Urine Nitrite Negative (NEG) Urine Bilirubin Negative (NEG) Urine Urobilinogen Dipstick 0.2 mg/dL (0.2 mg/dL) Urine Leukocyte Esterase Negative (NEG) Urine RBC Occ /HPF (0-2) Urine WBC Occ /HPF (0-4) Urine Squamous Epithelial Cells Mod /LPF Urine Bacteria 0 /HPF (0-FEW) Urine Mucus Slight /LPF Urine Opiates Screen Neg (NEG) Urine Methadone Screen Neg (NEG) Urine Barbiturates Neg (NEG) Urine Phencyclidine Screen Neg (NEG) Urine Amphetamine/Methamphetamine Neg (NEG) Urine Benzodiazepines Screen Neg (NEG) Urine Cocaine Screen Neg (NEG) Urine Cannabinoids Screen Neg (NEG) Urine Ethyl Alcohol Neg (NEG) Test 10/23/16 22:25 10/24/16 03:20 10/24/16 06:10 10/24/16 10:05 Lactic Acid Level 6.4 mmol/L (0.4-2.0) 3.5 mmol/L (0.4-2.0) 5.6 mmol/L (0.4-2.0) Gastric Fluid Occult Blood Positive (NEG) White Blood Count 15.5 x10^3/uL (4.0-11.0) Red Blood Count 2.83 x10^6/uL (3.50-5.40) Hemoglobin 9.2 g/dL (12.0-15.5) Hematocrit 28.1 % (36.0-47.0) Mean Corpuscular Volume 99 fL (79-100) Mean Corpuscular Hemoglobin 32 pg (25-35) Mean Corpuscular Hemoglobin Concent 33 g/dL (31-37) Red Cell Distribution Width 21.6 % (11.5-14.5) Platelet Count 82 x10^3/uL (140-400) Neutrophils (%) (Auto) 92 % (31-73) Lymphocytes (%) (Auto) 4 % (24-48) Monocytes (%) (Auto) 4 % (0-9) Eosinophils (%) (Auto) 0 % (0-3) Basophils (%) (Auto) 0 % (0-3) Neutrophils # (Auto) 14.3 x10^3uL (1.8-7.7) Lymphocytes # (Auto) 0.5 x10^3/uL (1.0-4.8) Monocytes # (Auto) 0.6 x10^3/uL (0.0-1.1) Eosinophils # (Auto) 0.0 x10^3/uL (0.0-0.7) Basophils # (Auto) 0.0 x10^3/uL (0.0-0.2) Reticulocyte Count (auto) 1.0 % (0.5-2.5) Sodium Level 145 mmol/L (136-145) Potassium Level 6.0 mmol/L (3.5-5.1) 6.3 mmol/L (3.5-5.1) Chloride Level 111 mmol/L (98-107) Carbon Dioxide Level 20 mmol/L (21-32) Anion Gap 14 (6-14) Blood Urea Nitrogen 121 mg/dL (7-20) Creatinine 1.8 mg/dL (0.6-1.0) Estimated GFR (Cockcroft-Gault) 26.6 Glucose Level 143 mg/dL (70-99) Calcium Level 7.9 mg/dL (8.5-10.1) Iron Level 216 ug/dL (50-170) Total Iron Binding Capacity 290 ug/dL (250-450) Iron Saturation 74 % (15-34) Vitamin B12 Level 414 pg/mL (247-911) Serum Folate > 20.00 ng/ml (3.2-20.0) Laboratory Tests Test 10/23/16 20:30 10/23/16 20:35 10/23/16 21:00 10/23/16 21:27 Lactic Acid Level 9.4 mmol/L (0.4-2.0) White Blood Count 9.4 x10^3/uL (4.0-11.0) Red Blood Count 1.79 x10^6/uL (3.50-5.40) Hemoglobin 7.0 g/dL (12.0-15.5) Hematocrit 21.2 % (36.0-47.0) Mean Corpuscular Volume 119 fL (79-100) Mean Corpuscular Hemoglobin 39 pg (25-35) Mean Corpuscular Hemoglobin Concent 33 g/dL (31-37) Red Cell Distribution Width 16.0 % (11.5-14.5) Platelet Count 136 x10^3/uL (140-400) Neutrophils (%) (Auto) 91 % (31-73) Lymphocytes (%) (Auto) 6 % (24-48) Monocytes (%) (Auto) 3 % (0-9) Eosinophils (%) (Auto) 0 % (0-3) Basophils (%) (Auto) 0 % (0-3) Neutrophils # (Auto) 8.6 x10^3uL (1.8-7.7) Lymphocytes # (Auto) 0.5 x10^3/uL (1.0-4.8) Monocytes # (Auto) 0.3 x10^3/uL (0.0-1.1) Eosinophils # (Auto) 0.0 x10^3/uL (0.0-0.7) Basophils # (Auto) 0.0 x10^3/uL (0.0-0.2) Segmented Neutrophils % 77 % (35-66) Band Neutrophils % 12 % (0-9) Lymphocytes % 6 % (24-48) Monocytes % 5 % (0-10) Nucleated Red Blood Cells 1 Platelet Estimate Adequate (ADEQUATE) Basophilic Stippling Present Macrocytosis Mod Ovalocytes Occ Prothrombin Time 15.2 SEC (11.7-14.0) Prothromb Time International Ratio 1.3 (0.8-1.1) Activated Partial Thromboplast Time 25 SEC (24-38) Sodium Level 143 mmol/L (136-145) Potassium Level 5.3 mmol/L (3.5-5.1) Chloride Level 104 mmol/L (98-107) Carbon Dioxide Level 20 mmol/L (21-32) Anion Gap 19 (6-14) Blood Urea Nitrogen 124 mg/dL (7-20) Creatinine 1.9 mg/dL (0.6-1.0) Estimated GFR (Cockcroft-Gault) 25.0 BUN/Creatinine Ratio 65 (6-20) Glucose Level 218 mg/dL (70-99) Calcium Level 9.4 mg/dL (8.5-10.1) Total Bilirubin 0.4 mg/dL (0.2-1.0) Aspartate Amino Transf (AST/SGOT) 18 U/L (15-37) Alanine Aminotransferase (ALT/SGPT) 17 U/L (14-59) Alkaline Phosphatase 45 U/L (46-116) Creatine Kinase 55 U/L (26-192) Creatine Kinase MB (Mass) 0.7 ng/mL (0.0-3.6) Creatine Kinase MB Relative Index % (0-4) Total Protein 6.5 g/dL (6.4-8.2) Albumin 3.3 g/dL (3.4-5.0) Albumin/Globulin Ratio 1.0 (1.0-1.7) Ethyl Alcohol Level < 10 mg/dL (0-10) Stool Occult Blood Negative (NEG) Urine Collection Type Unknown Urine Color Yellow Urine Clarity Clear Urine pH 5.5 Urine Specific [place] 1.015 Urine Protein Negative mg/dL (NEG-TRACE) Urine Glucose (UA) Negative mg/dL (NEG) Urine Ketones (Stick) Negative mg/dL (NEG) Urine Blood Negative (NEG) Urine Nitrite Negative (NEG) Urine Bilirubin Negative (NEG) Urine Urobilinogen Dipstick 0.2 mg/dL (0.2 mg/dL) Urine Leukocyte Esterase Negative (NEG) Urine RBC Occ /HPF (0-2) Urine WBC Occ /HPF (0-4) Urine Squamous Epithelial Cells Mod /LPF Urine Bacteria 0 /HPF (0-FEW) Urine Mucus Slight /LPF Urine Opiates Screen Neg (NEG) Urine Methadone Screen Neg (NEG) Urine Barbiturates Neg (NEG) Urine Phencyclidine Screen Neg (NEG) Urine Amphetamine/Methamphetamine Neg (NEG) Urine Benzodiazepines Screen Neg (NEG) Urine Cocaine Screen Neg (NEG) Urine Cannabinoids Screen Neg (NEG) Urine Ethyl Alcohol Neg (NEG) Test 10/23/16 22:25 10/24/16 03:20 10/24/16 06:10 10/24/16 10:05 Lactic Acid Level 6.4 mmol/L (0.4-2.0) 3.5 mmol/L (0.4-2.0) 5.6 mmol/L (0.4-2.0) Gastric Fluid Occult Blood Positive (NEG) White Blood Count 15.5 x10^3/uL (4.0-11.0) Red Blood Count 2.83 x10^6/uL (3.50-5.40) Hemoglobin 9.2 g/dL (12.0-15.5) Hematocrit 28.1 % (36.0-47.0) Mean Corpuscular Volume 99 fL (79-100) Mean Corpuscular Hemoglobin 32 pg (25-35) Mean Corpuscular Hemoglobin Concent 33 g/dL (31-37) Red Cell Distribution Width 21.6 % (11.5-14.5) Platelet Count 82 x10^3/uL (140-400) Neutrophils (%) (Auto) 92 % (31-73) Lymphocytes (%) (Auto) 4 % (24-48) Monocytes (%) (Auto) 4 % (0-9) Eosinophils (%) (Auto) 0 % (0-3) Basophils (%) (Auto) 0 % (0-3) Neutrophils # (Auto) 14.3 x10^3uL (1.8-7.7) Lymphocytes # (Auto) 0.5 x10^3/uL (1.0-4.8) Monocytes # (Auto) 0.6 x10^3/uL (0.0-1.1) Eosinophils # (Auto) 0.0 x10^3/uL (0.0-0.7) Basophils # (Auto) 0.0 x10^3/uL (0.0-0.2) Reticulocyte Count (auto) 1.0 % (0.5-2.5) Sodium Level 145 mmol/L (136-145) Potassium Level 6.0 mmol/L (3.5-5.1) 6.3 mmol/L (3.5-5.1) Chloride Level 111 mmol/L (98-107) Carbon Dioxide Level 20 mmol/L (21-32) Anion Gap 14 (6-14) Blood Urea Nitrogen 121 mg/dL (7-20) Creatinine 1.8 mg/dL (0.6-1.0) Estimated GFR (Cockcroft-Gault) 26.6 Glucose Level 143 mg/dL (70-99) Calcium Level 7.9 mg/dL (8.5-10.1) Iron Level 216 ug/dL (50-170) Total Iron Binding Capacity 290 ug/dL (250-450) Iron Saturation 74 % (15-34) Vitamin B12 Level 414 pg/mL (247-911) Serum Folate > 20.00 ng/ml (3.2-20.0) Assessment/Plan Assessment/Plan IMP YIN WITH CR OF ABOUT 2.0 HYPERKALEMIA HYPOTENSION LACTIC ACIDOSIS DUE TO TISSUE HYPOXIA ANEMIA GI BLEED PLAN PRESSORS TX K HCO3 GTT PRBC NEEDED GI EVAL AND TX RAINE CALVILLO MD October 24, 2016 11:41
[2016-10-24] MEDS ORDERED: IV NORMAL SALINE 500ML BAG 500 ML IV ONE (11:45)
[2016-10-24] MEDS ORDERED: SODIUM BICARB ADULT 8.4% 50 MEQ/50 ML DISP.SYRIN. IV ONE ×2 (11:45→20:00)
[2016-10-24] MEDS ORDERED: PROMETHAZINE 12.5 MG in IV NORMAL SALINE 50ML 50 ML IV PRN (11:45)
[2016-10-24] MEDS ORDERED: INSULIN REGULAR 100 UNIT/ML 10ML VIAL. IV ONE ×2 (11:45→20:00)
[2016-10-24] MEDS ORDERED: DEXTROSE 50% 25 GM / 50ML DISP.SYRIN. IV ONE ×3 (11:45→20:00)
[2016-10-24] MEDS ORDERED: CALCIUM GLUCONATE 1,000 MG in IV NORMAL SALINE 100ML 100 ML IV ONE (12:00)
[2016-10-24] MEDS: SODIUM BICARBONATE VIAL 50 MEQ in IV 1/2 NORMAL SALINE 1,000 ML IV SCH ×2 (12:05→21:32)
[2016-10-24] MEDS ORDERED: IV DEXTROSE 5% 250 ML IV ONE (12:30)
--- NOTE | 2016-10-24 15:43 | HP ---
ADMIT DATE: 10/24/2016 CHIEF COMPLAINT: Fall. HISTORY OF PRESENT ILLNESS: The patient is a pleasant 86-year-old female who fell; she was weak. Her family called EMS. She was found to be hypotensive and anemic with a hemoglobin of 7. She received 2 units of packed red blood cells; her hemoglobin is now up to 9. She also has what appears to be sepsis with a lactic acidosis and leukocytosis and a little bit of hyperkalemia with potassium of 5.3. Her BUN is 124, creatinine of 1.9. She clearly is dehydrated. I discussed the case with the ER physician. The patient has been admitted to the ICU with consultation to Infectious Disease and GI. PAST MEDICAL HISTORY: Arthritis, cataracts, hypertension, back surgery, bilateral knee replacement. ALLERGIES: None. FAMILY HISTORY: Coronary artery disease. SOCIAL HISTORY: She does not drink, smoke, or take drugs. MEDICATIONS: Reviewed, please refer to the MRAD. REVIEW OF SYSTEMS: GENERAL: She complains of weakness. SKIN: No bruising, hair changes or rashes. EYES: No blurred, double or loss of vision. NOSE AND THROAT: No history of nosebleeds, hoarseness or sore throat. HEART: No history of palpitations, chest pain or shortness of breath on exertion. LUNGS: Denies cough, hemoptysis, wheezing or shortness of breath. GASTROINTESTINAL: Denies changes in appetite, nausea, vomiting, diarrhea or constipation. GENITOURINARY: No history of frequency, urgency, hesitancy or nocturia. NEUROLOGIC: Denies history of numbness, tingling, tremor or weakness. PSYCHIATRIC: No history of panic, anxiety or depression. ENDOCRINE: No history of heat or cold intolerance, polyuria or polydipsia. EXTREMITIES: Denies muscle weakness, joint pain, pain on walking or stiffness. PHYSICAL EXAMINATION: VITAL SIGNS: Temperature afebrile, pulse 111, respirations 18, blood pressure is 87/45. GENERAL: She is alert, cooperative in the ICU, on bicarbonate and Levophed drips. HEART: Distant S1, S2. Tachycardic. LUNGS: Clear. ABDOMEN: Soft, positive bowel sounds. EXTREMITIES: Trace edema. SKIN: No rashes. ENDOCRINE: No thyromegaly. LYMPHATICS: No cervical nodes. HEMATOPOIETIC: No bruising. LABORATORY DATA: White count is 15.5; hemoglobin was 7, now is 9.2 after 2 units; platelets 82. Electrolytes pending, potassium is now high as 6.3 though. Folic acid greater than 20. CPK was 55. Chest x-ray, no acute disease. ASSESSMENT AND PLAN: Fall with severe dehydration, orthostatic hypotension, anemia, leukocytosis, and sepsis. The patient has been admitted. We will start IV antibiotics, IV fluids. Consult Infectious Disease. Consult Gastrointestinal. Transfuse 2 units of packed red blood cells. Resume home medicines, PT, OT, frequent labs. JANUSZ MALLOY DO DR: DANNY/addis JOB#: [id number] / [id number]
[2016-10-24] MEDS ORDERED: MICAFUNGIN 100 MG in IV DEXTROSE 5% 100 ML IV SCH (17:00)
[2016-10-24] MEDS ORDERED: CALCIUM GLUCONATE 1,000 MG/10 ML VIAL. IVP ONE (20:00)
[2016-10-24] MEDS: PHENYLEPHRINE INJ 20 MG in IV NORMAL SALINE 250ML 250 ML IV PRN (20:16)
[2016-10-24] MEDS ORDERED: DARBEPOETIN ALFA 60 MCG/0.3 ML DISP.SYRIN. SQ SCH (21:00)
[2016-10-25] VITALS (13 sets, daily range): BP systolic 62–105; BP diastolic 27–50
[2016-10-25] MEDS: PHENYLEPHRINE INJ 20 MG in IV NORMAL SALINE 250ML 250 ML IV PRN ×4 (00:37→08:00)
[2016-10-25] MEDS: NOREPINEPHRIN PREMIX 250 ML IV PRN ×2 (02:11→06:41)
[2016-10-25] MEDS: PANTOPRAZOLE SODIUM IV 80 MG in IV NORMAL SALINE 100ML 100 ML IV SCH (02:45)
--- NOTE | 2016-10-25 03:35 | CONS ---
DATE OF CONSULTATION: 10/24/2016 REQUESTING PHYSICIAN: Rodolfo Myers MD REASON FOR CONSULTATION: Possible sepsis. HISTORY OF PRESENT ILLNESS: This is an 86-year-old female who does not go to the doctor regularly, who has been taking bunch of aspiration for her arthritis pain. In fact, the patient fell down and hence she was brought in. The patient was found to be severely anemic, hemoccult positive, coffee-ground emesis, Lactic acidosis, hypotension requiring vasopressor support and started on vancomycin and Zosyn and consult has been requested. The patient is alert, awake, and able to communicate. The patient's ____ wanting some pain medication for her bad knees, otherwise she feels fine; denies any chest pain, denies any shortness of breath, denies any abdominal pain, denies any urinary symptoms, denies any headache or visual symptoms, denies any fever or chills and denies any other symptoms other than pain in the knee before she fell. PAST MEDICAL HISTORY: Positive for severe arthritis of the knees, esophageal stricture with off and on dilatation done, cataract surgery done. As I said, normally, she does not go to the doctor. SOCIAL HISTORY: Negative for smoking. Occasional wine, ____ glass that she drinks. ALLERGIES: No known drug allergies. CURRENT MEDICATIONS: Reviewed. The patient is on vancomycin and Zosyn. REVIEW OF SYSTEMS: As per HPI, all other systems reviewed are negative. PHYSICAL EXAMINATION: GENERAL: Alert and oriented female, not in distress. VITAL SIGNS: Stable. Temperature 97.4 with the lowest temperature has been 95.4, pulse 122, respirations 16, and blood pressure was 73/35 on vasopressor support. HEENT: Both pupils are round and reacting. No conjunctival lesion, no lesion in the mouth. NECK: Supple, no JVP, no lymphadenopathy. LUNGS: Clear. HEART: S1, S2 regular. ABDOMEN: Benign. EXTREMITIES: 2+ pitting edema present. SKIN: Rest of the skin examination is unremarkable. NEUROLOGIC: The patient is neurologically intact. LABORATORY DATA: White count is 15.5, hemoglobin was down to 7 now it is 9.2 after transfusion of blood, and platelets are 82,000. BUN is 21, creatinine 1.8. Lactic acid was in 9.4, now is down to 3.5. Drug screen was negative. Urinalysis was unremarkable. Gastric occult was positive. Blood culture has been done and is pending. DIAGNOSTIC DATA: X-rays were unremarkable other than there was a question of an impacted distal femur fracture. IMPRESSION: 1. Status post fall. 2. Lactic acidosis. It could be from ischemic bowel, although she does not have any abdominal pain, could be from infection, although there is nothing obvious in that area either. 3. Hypotension secondary to dehydration, gastrointestinal bleed and sepsis, needs to be ruled out. 4. Leukocytosis. 5. Severe arthritis. 6. Gastrointestinal bleed with severe anemia. 7. Acute renal failure from dehydration/also gastrointestinal bleed. 8. Baseline creatinine is unknown. RECOMMENDATIONS: I would continue vancomycin and Zosyn, supportive care, and more fluids. She should be able to tolerate. CT abdomen and pelvis without contrast, in detailed discussion done with the patient's family at the bedside. The patient is DNR/DNI. Thank you very much, Dr. Myers, for giving me the opportunity to participate in this wonderful patient's care. AILIN MELENDEZ MD DR: AIDA/addis JOB#: [id number] / [id number]
[2016-10-25] MEDS: SODIUM BICARBONATE VIAL 50 MEQ in IV 1/2 NORMAL SALINE 1,000 ML IV SCH ×2 (04:16→08:39)
[2016-10-25] MEDS: PIPERACILLIN/TAZOBACTAM 2.25 GM in IV NORMAL SALINE 50ML 50 ML IV SCH (05:42)
[2016-10-25 06:03] LABS: CALCIUM 7.8 mg/dL (8.5-10.1); CREATININE 2.4 mg/dL (0.6-1.0); GFR 19.1
[2016-10-25 06:13] LABS: POTASSIUM 7.3 mmol/L (3.5-5.1)
--- NOTE | 2016-10-25 08:15 | PDOC ---
Infectious Disease Note Subjective Subjective pt is lethargic ROS ROS unable to do Vital Sign Vital Signs Vital Signs Date Time Temp Pulse Resp B/P (MAP) Pulse Ox O2 Delivery O2 Flow Rate FiO2 10/25/16 07:00 114 21 92/33 (52) 100 Room Air 10/25/16 04:00 96.7 96.7 10/24/16 13:03 2.0 Physical Exam PHYSICAL EXAM GENERAL: lethargic HEENT: PERRL, OC/OP NECK: Supple, no JVD, no LN LUNGS: Clear HEART: S1S2, no gallop, no murmur ABD: Soft, NT, no organomegaly, no rebound EXT: No edema, no cyanosis [employer]: lethargic SKIN: No rash IV: ok Labs Lab Laboratory Tests Test 10/24/16 10:05 10/24/16 14:15 10/24/16 15:25 10/24/16 20:15 Potassium Level 6.3 mmol/L (3.5-5.1) 6.0 mmol/L (3.5-5.1) 5.9 mmol/L (3.5-5.1) Lactic Acid Level 5.6 mmol/L (0.4-2.0) 7.8 mmol/L (0.4-2.0) 9.9 mmol/L (0.4-2.0) Test 10/25/16 05:00 Sodium Level 145 mmol/L (136-145) Potassium Level 7.3 mmol/L (3.5-5.1) Chloride Level 111 mmol/L (98-107) Carbon Dioxide Level 6 mmol/L (21-32) Anion Gap 28 (6-14) Blood Urea Nitrogen 147 mg/dL (7-20) Creatinine 2.4 mg/dL (0.6-1.0) Estimated GFR (Cockcroft-Gault) 19.1 Glucose Level 84 mg/dL (70-99) Lactic Acid Level 12.9 mmol/L (0.4-2.0) Calcium Level 7.8 mg/dL (8.5-10.1) Objective Assessment S/P Fall Lactic acidosis likely has ischemic bowel , culture neg Hypotension, dehydration vs sepsis Leukocytosis Severe arthritis GI bleed/anemia Plan Plan of Care cont vanc and zosyn and apoorva supportive care fluids DNR/DNI d/w family in detail, explained the condition pt is in, they have decided to go for comfort care, waiting for one brother and then stop everything but pain meds. 35 min spent AILIN MELENDEZ MD October 25, 2016 08:15
--- NOTE | 2016-10-25 09:04 | PDOC ---
Objective: Objective: Reviewed other notes, d/w RN and family. Vital Signs: Vital Signs Date Time Temp Pulse Resp B/P (MAP) Pulse Ox O2 Delivery O2 Flow Rate FiO2 10/25/16 08:00 Room Air 10/25/16 08:00 94.0 96 22 100/45 (63) 100 94.0 10/24/16 13:03 2.0 Labs: Laboratory Tests Test 10/24/16 10:05 10/24/16 14:15 10/24/16 15:25 10/24/16 20:15 Potassium Level 6.3 mmol/L 6.0 mmol/L 5.9 mmol/L Lactic Acid Level 5.6 mmol/L 7.8 mmol/L 9.9 mmol/L Test 10/25/16 05:00 Sodium Level 145 mmol/L Potassium Level 7.3 mmol/L Chloride Level 111 mmol/L Carbon Dioxide Level 6 mmol/L Anion Gap 28 Blood Urea Nitrogen 147 mg/dL Creatinine 2.4 mg/dL Estimated GFR (Cockcroft-Gault) 19.1 Glucose Level 84 mg/dL Lactic Acid Level 12.9 mmol/L Calcium Level 7.8 mg/dL PE: ABD: soft A/P: Lactic acidosis Coffee-ground emesis Hypotension Leukocytosis YIN Hyperkalemia -- Family planning for comfort care. KJ ACUÑA October 25, 2016 09:04
[2016-10-25] MEDS ORDERED: VANCOMYCIN 750 MG in IV NORMAL SALINE 250ML 250 ML IV SCH (23:00)
--- NOTE | 2016-10-26 01:45 | DS ---
DATE OF DISCHARGE: 10/25/2016 SUMMARY DATE OF : 10/25/2016 ADMISSION DIAGNOSIS: Severe sepsis. CAUSE OF : Progression of severe sepsis with probable ischemic gut. HOSPITAL COURSE: The patient was a pleasant 86-year-old female who presented with severe sepsis. She was admitted on the vent to the ICU. We gave her strong IV antibiotics and consulted Infectious Disease and GI. This morning, she had some GI bleeding. GI ordered a CAT scan. She never made to the CAT scan. She became hemodynamically unstable and shortly thereafter. JANUSZ MALLOY DO DR: DANNY/addis JOB#: [id number] / [id number]
== END 2016-10-25 09:28 | disposition expired | DRG 871 ==
LOC: ER 19:38 → 1 WEST ICU 21:55
PROVIDERS: ADMIT Internal Medicine; ATTEND Internal Medicine
PROC: 30233N1 Transfusion of Nonautologous Red Blood Cells into Peripheral Vein, Percutaneous Approach (ICD-10-PCS; principal; 2016-10-23)
DX: A41.9 Sepsis, unspecified organism (principal); N17.0 Acute kidney failure with tubular necrosis; K55.059 Acute (reversible) ischemia of intestine, part and extent unspecified; E44.1 Mild protein-calorie malnutrition; E87.5 Hyperkalemia; K21.9 Gastro-esophageal reflux disease without esophagitis; M19.90 Unspecified osteoarthritis, unspecified site; D53.9 Nutritional anemia, unspecified; I10 Essential (primary) hypertension; K59.00 Constipation, unspecified; R73.9 Hyperglycemia, unspecified; Z66 Do not resuscitate; W19.XXXA Unspecified fall, initial encounter; Z96.653 Presence of artificial knee joint, bilateral; R65.20 Severe sepsis without septic shock; R09.02 Hypoxemia; I95.1 Orthostatic hypotension; Z51.5 Encounter for palliative care; Z82.49 Family history of ischemic heart disease and other diseases of the circulatory system; Z87.11 Personal history of peptic ulcer disease; Y93.89 Activity, other specified; Y92.89 Other specified places as the place of occurrence of the external cause; Y99.8 Other external cause status; Z79.899 Other long term (current) drug therapy; Z79.1 Long term (current) use of non-steroidal anti-inflammatories (NSAID); Z79.2 Long term (current) use of antibiotics
CPT/HCPCS: 36415; 51701; 71010; 73562; 73610; 80048; 80053; 81001; 82271; 82274; 82553; 82607; 82746; 83540; 83550; 83605; 84132; 85007; 85027; 85045; 85610; 85730; 86850; 86900; 86901; 86920; 87040; 87641; 93005; 96361; 96374; C9113; G0480; G0481; J0610; J0881; J1815; J2248; J2405; J2543; J2550; J3010; J3370; J7030; J7040; J7050; P9016; 99291-25